=== PATIENT | male | born 1995 | race Caucasian/White ===

== ENCOUNTER 2024-04-15 19:47 | Emergency (ER) | payer SELFPAY ==
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
[2024-04-15 20:15] VITALS: BP 159/100; PULSE 82; RESP 19; TEMP 36.7; O2SAT 99
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
[2024-04-15] MEDS: TET/DIPHTH/PERT-ADULT 0.5ML SYRINGE 0.5 ML IM (20:24)
[2024-04-15 20:29] VITALS: BMI 25.7
[2024-04-15] MEDS: ACETAMINOPHEN 500MG TAB 1000 MG PO (20:44)
[2024-04-15 20:45] VITALS: BP 140/90; PULSE 65; RESP 16; TEMP 36.6; O2SAT 98
== END 2024-04-15 20:46 | disposition home or self-care (01) ==
LOC: ER 20:36
PROVIDERS: Emergency Provider Student in an Organized Health Care Education/Training Program
DX: S09.90XA Unspecified injury of head, initial encounter (principal); S01.01XA Laceration without foreign body of scalp, initial encounter; V49.40XA Driver injured in collision with unspecified motor vehicles in traffic accident, initial encounter; Z23 Encounter for immunization; Y92.410 Unspecified street and highway as the place of occurrence of the external cause
CPT/HCPCS: 12001; 90471; 90715; 99283